=== PATIENT | male | born 1950 | race Caucasian/White ===

== ENCOUNTER → 2017-09-02 | Outpatient (CLI) | payer MEDICARE ==
[2017-09-02 16:27] LABS: BASO # 0.1 10^3/uL (0.0-0.2); BASO % 0.8 % (0.0-1.0); EOS # 0.1 10^3/uL (0.0-0.50); EOS % 1.3 % (0.0-3.0); HEMATOCRIT 49.9 % (42.0-52.0); HEMOGLOBIN 16.6 g/dl (13.5-17.5); IMMATURE GRANULOCYTE % 0.3 % (0-3.0); LYMPH # 1.6 10^3/uL (1.5-4.5); LYMPH % 21.2 % (24.0-44.0); MEAN CORPUSCULAR HEMOGLOBIN 30.6 pg (27.0-33.0); MEAN CORPUSCULAR HGB CONC 33.3 g/dl (32.0-36.5); MEAN CORPUSCULAR VOLUME 91.9 fl (80.0-96.0); MONO % 12.9 % (0.0-5.0); NEUTROPHILS # 4.8 10^3/uL (1.8-7.7); NEUTROPHILS % 63.5 % (36.0-66.0); PLATELET COUNT, AUTOMATED 219 10^3/uL (150-450); RED BLOOD COUNT 5.43 10^6/uL (4.30-6.10); RED CELL DISTRIBUTION WIDTH 13.4 % (11.5-14.5); WHITE BLOOD COUNT 7.5 10^3/uL (4.0-10.0)
[2017-09-02 17:25] LABS: ANION GAP 9 MEQ/L (8-16); BLOOD UREA NITROGEN 14 MG/DL (7-18); CALCIUM LEVEL 8.7 MG/DL (8.8-10.2); CARBON DIOXIDE LEVEL 28 MEQ/L (21-32); CHLORIDE LEVEL 106 MEQ/L (98-107); CREATININE FOR GFR 1.15 MG/DL (0.70-1.30); FREE T4 0.98 NG/DL (0.76-1.46); GLOMERULAR FILTRATION RATE > 60.0 (>49); GLUCOSE, FASTING 92 MG/DL (70-100); POTASSIUM SERUM 4.3 MEQ/L (3.5-5.1); SODIUM LEVEL 143 MEQ/L (136-145)
== END ==
LOC: M WUC 11:54
DX: I10 Essential (primary) hypertension (principal)
CPT/HCPCS: 84443

== ENCOUNTER → 2018-04-27 | Outpatient (REF) | payer MEDICARE ==
[2018-04-27 15:09] LABS: CALCIUM LEVEL 8.5 MG/DL (8.8-10.2); CREATININE FOR GFR 1.28 MG/DL (0.70-1.30); GLOMERULAR FILTRATION RATE 59.3 (>49); POTASSIUM SERUM 4.4 MEQ/L (3.5-5.1)
== END ==
LOC: M SFHCPLAZ 11:35
PROVIDERS: ATTEND Physician Assistant
DX: I10 Essential (primary) hypertension (principal)
CPT/HCPCS: 36415; 80048; G0463

== ENCOUNTER → 2021-01-29 | Outpatient (CLI) | payer MEDICARE ==
--- NOTE | 2021-01-29 13:21 | REP ---
INDICATION: UNSPECIFIED ASTHMA, UNCOMPLICATED COMPARISON: None. TECHNIQUE: PA and lateral. FINDINGS: Left upper opacity most likely represents consolidation and partial left upper lobe collapse with associated ipsilateral mediastinal shift and volume loss. Underlying mass lesion cannot definitively be excluded. Remainder of the lung davison are relatively well aerated. No effusion. No pneumothorax. IMPRESSION: Left upper lobe opacity likely representing consolidation/collapse. Follow-up to resolution as mass lesion cannot be excluded. <Electronically signed by Cassius Sanches > 01/29/21 [id number]
== END ==
LOC: M PLAIMG 12:48
PROVIDERS: ATTEND Nurse Practitioner Adult Health
DX: J45.909 Unspecified asthma, uncomplicated (principal)

== ENCOUNTER → 2021-02-12 | Outpatient (CLI) | payer MEDICARE ==
--- NOTE | 2021-02-12 13:53 | REP ---
INDICATION: PNEUMONIA, UNSPECIFIED ORGANISM COMPARISON: 01/29/2021 TECHNIQUE: PA and lateral. FINDINGS: The mediastinum and cardiac silhouette are normal. Vague left upper lobe opacity again noted appearing mildly improved compared to prior examination. Remainder of lung davison are well aerated and clear. No effusion. No pneumothorax. IMPRESSION: Veil of left upper lobe opacity appears improved. However, a small air-fluid level is suspected. Consider contrast-enhanced chest CT for further investigation and follow-up. <Electronically signed by Cassius Sanches > 02/12/21 [id number]
== END ==
LOC: M PLAIMG 08:39
PROVIDERS: ATTEND Nurse Practitioner Adult Health
DX: J18.9 Pneumonia, unspecified organism (principal)

== ENCOUNTER → 2021-02-25 | Outpatient (CLI) | payer MEDICARE ==
[~2021-02-25] MED LIST: ALBU83IN INH; ALBU83IN NEB; ANOR1AER PO; ATOR1TAB19 PO; CHLO25TA PO; LISI30TA4 PO; PERC5TAB12 PO; PROC10TA5 PO
== END ==
LOC: M RAD 08:18
PROVIDERS: ATTEND Nurse Practitioner Adult Health
DX: J18.9 Pneumonia, unspecified organism (principal); J98.11 Atelectasis; R59.0 Localized enlarged lymph nodes; K80.20 Calculus of gallbladder without cholecystitis without obstruction

== ENCOUNTER → 2021-03-07 | Outpatient (CLI) | payer MEDICARE ==
--- NOTE | 2021-03-07 08:48 | REP ---
INDICATION: GALLSTONES PT NEEDS LABS AFTER US COMPARISON: None. TECHNIQUE: Real time bella scale ultrasound examination using curved array transducer. FINDINGS: Liver is normal in contour, size, and echogenicity without focal hepatic lesions identified. Pancreas is incompletely evaluated due to interposed bowel gas. The gallbladder is contracted and demonstrates a "[id number]" (LAVINIA) appearance consistent with multiple stones and associated posterior shadowing. No obvious pericholecystic fluid or stranding is identified. No evidence for intrahepatic biliary dilatation. The common bile duct is upper limits of normal at 7.1 mm. Right kidney is normal in reniform shape without hydronephrosis and measures 10.2 x 5.6 x 4.8 cm. No ascites in the visualized right upper quadrant. IMPRESSION: 1. Gallbladder demonstrates a LAVINIA sign suggesting contracted state with multiple gallstones/gravel. Common bile duct is upper limits normal at 7.1 mm diameter. <Electronically signed by Cassius Sanches > 03/07/21 [id number]
[2021-03-07 08:54] LABS: ALBUMIN 3.5 GM/DL (3.2-5.2); ALT/SGPT 44 U/L (12-78); BILIRUBIN,TOTAL 0.8 MG/DL (0.2-1.0); BLOOD UREA NITROGEN 21 MG/DL (7-18); CALCIUM LEVEL 9.5 MG/DL (8.8-10.2); CARBON DIOXIDE LEVEL 29 MEQ/L (21-32); CHLORIDE LEVEL 92 MEQ/L (98-107); CHOLESTEROL LEVEL 129 MG/DL (<200); CREATININE FOR GFR 1.06 MG/DL (0.70-1.30); GLOMERULAR FILTRATION RATE > 60.0 (>42); GLUCOSE, FASTING 107 MG/DL (70-100); HDL CHOLESTEROL 62 MG/DL (>40); LDL CHOLESTEROL 46 MG/DL (<100); NON-HDL-C 67 MG/DL; POTASSIUM SERUM 4.5 MEQ/L (3.5-5.1); SODIUM LEVEL 127 MEQ/L (136-145); TOTAL PROTEIN 7.5 GM/DL (6.4-8.2); TRIGLYCERIDES LEVEL 106 MG/DL (<150)
== END ==
LOC: M LAB 07:16
PROVIDERS: ATTEND Nurse Practitioner Adult Health
DX: K80.20 Calculus of gallbladder without cholecystitis without obstruction (principal); Z13.29 Encounter for screening for other suspected endocrine disorder; E78.2 Mixed hyperlipidemia; I10 Essential (primary) hypertension

== ENCOUNTER → 2021-03-22 | Outpatient (CLI) | payer MEDICARE | LOC: M LABSMTC 09:28 | PROVIDERS: ATTEND Anesthesiology | DX: Z01.812 Encounter for preprocedural laboratory examination (principal); Z20.822 Contact with and (suspected) exposure to COVID-19 ==

== ENCOUNTER → 2021-03-25 | Outpatient (CLI) | payer MEDICARE ==
[2021-03-25 09:57] LABS: PLATELET COUNT, AUTOMATED 320 10^3/uL (150-450)
[2021-03-25 10:08] LABS: INR 1.01; PROTHROMBIN TIME 13.7 SECONDS (12.7-14.5)
[2021-03-25 10:09] LABS: PARTIAL THROMBOPLASTIN TIME 37.9 SECONDS (25.9-37.0)
== END ==
LOC: M LAB 08:57
PROVIDERS: ATTEND Internal Medicine Pulmonary Disease
DX: Z01.812 Encounter for preprocedural laboratory examination (principal)

== ENCOUNTER → 2021-04-12 | Outpatient (CLI) | payer MEDICARE ==
[~2021-04-12] MED LIST changes: +ISOVUE-370 76% 100ML VIAL As Ordered ONE
== END ==
LOC: M RAD 09:43
PROVIDERS: ATTEND Otolaryngology
DX: J38.01 Paralysis of vocal cords and larynx, unilateral (principal); R91.8 Other nonspecific abnormal finding of lung field; J43.9 Emphysema, unspecified; J84.10 Pulmonary fibrosis, unspecified
CPT/HCPCS: 70491; Q9967

== ENCOUNTER → 2021-04-15 | Outpatient (CLI) | payer MEDICARE ==
[~2021-04-15] MED LIST changes: -ISOVUE-370 76% 100ML VIAL As Ordered ONE
== END ==
LOC: M PLARAD 11:20
PROVIDERS: ATTEND Internal Medicine Pulmonary Disease
DX: R93.89 Abnormal findings on diagnostic imaging of other specified body structures (principal); C34.12 Malignant neoplasm of upper lobe, left bronchus or lung
CPT/HCPCS: 78815; A9552

== ENCOUNTER → 2021-04-26 | Outpatient (CLI) | payer MEDICARE | LOC: M ONCR 08:59 | PROVIDERS: ATTEND General Practice | DX: C34.12 Malignant neoplasm of upper lobe, left bronchus or lung (principal); F17.210 Nicotine dependence, cigarettes, uncomplicated; J38.00 Paralysis of vocal cords and larynx, unspecified; M54.9 Dorsalgia, unspecified; R06.09 Other forms of dyspnea; R63.4 Abnormal weight loss; Z80.1 Family history of malignant neoplasm of trachea, bronchus and lung; Z88.8 Allergy status to other drugs, medicaments and biological substances; Z79.899 Other long term (current) drug therapy ==

== ENCOUNTER → 2021-05-02 | Outpatient (CLI) | payer MEDICARE ==
[~2021-05-02] MED LIST changes: +LIDOCAINE 1% MDV 20ML VIAL As Ordered ONE; +MIDAZOLAM INJ 2MG/2ML VIAL (J2250 PER 1MG) As Ordered ONE; +ceFAZolin 2 GM/D5W 50 ML IV BAG (J0690 PER 500MG) As Ordered ONE; +diphenhydrAMINE 50MG/ML VIAL (J1200) As Ordered ONE; +fentaNYL 100 MCG/2 ML INJECTION As Ordered ONE
[2021-05-02] MEDS: NS 1,000 ML IV SCH (12:10)
[2021-05-02] MEDS: ceFAZolin SOD 2 GM in IV 1 EA IV ONE (12:10)
[2021-05-02 15:25] VITALS: BP 119/62
== END ==
LOC: M IRPRO 11:37
PROVIDERS: ATTEND Radiology Diagnostic Radiology
DX: C34.90 Malignant neoplasm of unspecified part of unspecified bronchus or lung (principal)
CPT/HCPCS: 36561; 99152; 99153; C1769; C1788; C1894; J0690; J1200; J1642; J1644; J2250; J3010

== ENCOUNTER → 2021-05-21 | Outpatient (POV) | payer MEDICARE ==
[~2021-05-21] VITALS: Ht 170.2 cm; Wt 67.7 kg
[~2021-05-21] MED LIST changes: -LIDOCAINE 1% MDV 20ML VIAL As Ordered ONE; -MIDAZOLAM INJ 2MG/2ML VIAL (J2250 PER 1MG) As Ordered ONE; -ceFAZolin 2 GM/D5W 50 ML IV BAG (J0690 PER 500MG) As Ordered ONE; -diphenhydrAMINE 50MG/ML VIAL (J1200) As Ordered ONE; -fentaNYL 100 MCG/2 ML INJECTION As Ordered ONE
[2021-05-21 09:50] VITALS: BP 136/64
== END ==
LOC: M IRPOV 09:26
PROVIDERS: ATTEND Radiology Diagnostic Radiology
DX: Z45.2 Encounter for adjustment and management of vascular access device (principal)

== ENCOUNTER → 2021-05-24 | Outpatient (CLI) | payer MEDICARE ==
[~2021-05-24] MED LIST changes: +PROHANCE 279.3MG/ML 15ML VIAL ONE
== END ==
LOC: M PLAIMG 09:14
PROVIDERS: ATTEND General Practice
DX: C34.12 Malignant neoplasm of upper lobe, left bronchus or lung (principal)
CPT/HCPCS: 70553; A9576

== ENCOUNTER → 2021-06-06 | Outpatient (RCR) | payer MEDICARE ==
[~2021-06-06] MED LIST changes: -PROHANCE 279.3MG/ML 15ML VIAL ONE
== END ==
LOC: M ONCR 05-09 10:00
PROVIDERS: ATTEND General Practice
DX: C34.12 Malignant neoplasm of upper lobe, left bronchus or lung (principal)

== ENCOUNTER 2021-07-03 10:30 | Outpatient (RCR) | payer MEDICARE | END 2021-07-06 | LOC: M ONCR 10:30 | PROVIDERS: ATTEND General Practice | DX: C34.12 Malignant neoplasm of upper lobe, left bronchus or lung (principal) ==

== ENCOUNTER → 2021-07-30 | Outpatient (CLI) | payer MEDICARE | LOC: M RAD 13:06 | PROVIDERS: ATTEND Internal Medicine Medical Oncology | DX: C34.12 Malignant neoplasm of upper lobe, left bronchus or lung (principal); Z95.828 Presence of other vascular implants and grafts ==